=== PATIENT | female | born 1985 | race Caucasian/White ===

== ENCOUNTER 2018-06-14 00:41 | Emergency (ER) | payer BC ==
[~2018-06-14] VITALS: Ht 172.7 cm; Wt 47.6 kg
--- NOTE | 2018-06-14 00:49 | NUR ---
at bedside for eval
--- NOTE | 2018-06-14 00:50 | NUR ---
Matthew spain in [facility] [place] - 06/14/18 at 0121 by [id number] Patient was accidently registered by SARA giraldo
--- NOTE | 2018-06-14 01:23 | NUR ---
Patient discharged to home in stable conditon. Written and verbal after care instructions given. Patient verbalizes understanding of instructions. Pt ambulated out of ER via crutches. Right ankle arelis wrapped by .
[2018-06-14 01:26] VITALS: BP 121/73
== END 2018-06-14 01:28 | disposition home or self-care (01) ==
LOC: ER 00:56
DX: S93.401A Sprain of unspecified ligament of right ankle, initial encounter (principal); X50.1XXA Overexertion from prolonged static or awkward postures, initial encounter; Y92.89 Other specified places as the place of occurrence of the external cause; Y93.89 Activity, other specified; Y99.8 Other external cause status
CPT/HCPCS: 73610; A4663